=== PATIENT | female | born 1980 | race Caucasian/White ===

== ENCOUNTER 2019-04-17 21:07 | Emergency (ER) | payer BC ==
[~2019-04-17] VITALS: Ht 165.1 cm; Wt 102.1 kg
[2019-04-17 21:11] VITALS: BP 136/81
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
[2019-04-17] MEDS ORDERED: KETOROLAC 30 MG/ML VIAL IM ONE (21:25)
--- NOTE | 2019-04-17 21:54 | NUR ---
X-Ray at bedside.
[2019-04-17 22:45] VITALS: BP 128/84
--- NOTE | 2019-04-17 22:45 | NUR ---
PT REFUSED CRUTCHES, CONSENTED TO [facility]
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
== END 2019-04-17 22:45 | disposition home or self-care (01) ==
LOC: MED 21:07
DX: S83.92XA Sprain of unspecified site of left knee, initial encounter (principal); R03.0 Elevated blood-pressure reading, without diagnosis of hypertension; V03.90XA Pedestrian on foot injured in collision with car, pick-up truck or van, unspecified whether traffic or nontraffic accident, initial encounter; Y93.89 Activity, other specified; Y92.488 Other paved roadways as the place of occurrence of the external cause; Y99.8 Other external cause status
CPT/HCPCS: 73562; 96372; 99283; J1885; Q0092